=== PATIENT | female | born 1945 | race Caucasian/White ===

== ENCOUNTER 2016-05-09 09:03 | Emergency (ER) | payer MEDICARE ==
[2016-05-09 09:15] VITALS: TEMP 96.2
[2016-05-09] MEDS ORDERED: LACTATED RINGERS 1,000 ML IVS ONE (09:27)
[2016-05-09] MEDS ORDERED: IBUPROFEN 200 MG TAB PO ONE (10:45)
--- NOTE | 2016-05-09 10:47 | ED.PDOC ---
History of Present Illness - General Chief Complaint: General Stated Complaint: fever, diarrhea, weakness Time Seen by Provider: 05/09/16 09:25 Source: patient Exam Limitations: no limitations - History of Present Illness Initial Comments: The patient is a 70-year-old female presenting to the emergency room secondary to 5 days of symptoms including generalized body aches, nausea and mild diarrhea. She is started to feel weak over the last day or so. Her oral intake has not been quite normal. No shortness of breath or chest pain. No cough. No focal abdominal discomfort. She does have some abdominal cramping. No syncope or near syncope. No palpitations. Timing/Duration: 1 week Severity: moderate Improving Factors: nothing Worsening Factors: nothing Associated Symptoms: fever/chills, loss of appetite, malaise, nausea/vomiting, weakness Allergies/Adverse Reactions: Allergies NO KNOWN ALLERGY Allergy (Verified 05/09/16 09:15) Home Medications: Ambulatory Orders amLODIPine BESYLATE [Norvasc] 10 mg PO DAILY #60 tab 12/26/15 Losartan Potassium 50 mg PO BID 02/04/16 Metoprolol Tartrate 50 mg PO BID 02/04/16 Clonidine HCl 0.1 mg PO TID 02/05/16 Oseltamivir [Tamiflu] 75 mg PO BID #10 cap 05/09/16 Review of Systems - Review of Systems Constitutional: States: fever, malaise, weakness EENTM: States: no symptoms reported Respiratory: States: no symptoms reported Cardiology: States: no symptoms reported Gastrointestinal/Abdominal: States: diarrhea, nausea Genitourinary: States: no symptoms reported Musculoskeletal: States: other - generalized body aches Skin: States: no symptoms reported Neurological: States: headache - mild, weakness - mild generalized Endocrine: States: no symptoms reported All other Systems: No Change from Baseline Past Medical History (General) - Patient Medical History Hx Seizures: No Hx Stroke: No Hx Dementia: No Hx Asthma: No Hx of COPD: Yes Hx Cardiac Disorders: No Hx Congestive Heart Failure: No Hx Pacemaker: No Hx Hypertension: Yes Hx Thyroid Disease: No Hx Diabetes: No Hx Gastroesophageal Reflux: No Hx Renal Disease: No Hx Cancer: No Hx of HIV: No Hx Hepatitis C: No Hx MRSA: No Surgical History: Hysterectomy - Vaccination History Hx Tetanus, Diphtheria Vaccination: No Hx Influenza Vaccination: No - 2016 Hx Pneumococcal Vaccination: No - Social History Hx Tobacco Use: Yes Hx Chewing Tobacco Use: No Hx Alcohol Use: No Hx Substance Use: No Hx Substance Use Treatment: No Hx Depression: No Hx Physical Abuse: No Hx Emotional Abuse: No Hx Suspected Abuse: No - Female History Patient : No Family Medical History - Family History Mother Living Status: Age at (years of age): 77 Cause of : Heart complications Hx Family Asthma: No Hx Family Congestive Heart Failure: No Hx Family Hypertension: Yes Hx Family Stroke: No Hx Cardiac Disease: Yes Hx Family Diabetes: No Hx Family Cancer: No Father Living Status: Age at (years of age): 56 Cause of : [place] Hx Family Asthma: No Hx Family Congestive Heart Failure: No Hx Family Hypertension: No Hx Family Stroke: No Hx Cardiac Disease: Yes Hx Family Diabetes: No Hx Family Cancer: No Hx Family;Other: States her Parents didnt go to doctors. Physical Exam - Physical Exam General Appearance: Alert, Comfortable, No apparent distress Eye Exam: bilateral normal Ears, Nose, Throat: normal ENT inspection, normal pharynx Neck: full range of motion, supple Respiratory: chest non-tender, lungs clear, normal breath sounds, no respiratory distress, no accessory muscle use Cardiovascular/Chest: normal peripheral pulses, regular rate, rhythm, no edema Peripheral Pulses: radial,right: 2+, radial,left: 2+, dorsalis pedis,right: 2+, dorsalis pedis,left: 2+ Gastrointestinal/Abdominal: non tender, soft, other - o focal tenderness no rebound or peritoneal signs. Rectal Exam: deferred Back Exam: normal inspection Extremity: normal range of motion, non-tender, normal inspection, no pedal edema , normal capillary refill Neurologic: alert, normal mood/affect, oriented x 3 Skin Exam: normal color Comments: Vital Signs - 24 hr 05/09/16 05/09/16 09:10 10:03 Temperature 96.2 F L Pulse Rate [ 60 67 Left Radial] Respiratory 16 16 Rate Blood Pressure 146/73 144/67 [Left Arm] O2 Sat by Pulse 97 100 Oximetry Progress - Progress Progress: 05/09/16 10:49 the patient is a 70-year-old female presenting with gastrointestinal symptoms that appear to be due to influenza. She has tested positive for this. She does have mild dehydration and once was given 1 L of IV fluids. I recommend that she use Motrin 3 times daily for the next 2 days to help reduce body aches and fevers. Additionally she should take famotidine 20 mg twice daily for the next week. She needs to keep herself well-hydrated. One tablet of Imodium can be used daily as necessary to help reduce diarrhea. She certainly needs to avoid constipation. Lab work otherwise is reassuring here today. ER warnings were given for any acute worsening. Recommend follow-up with her primary care doctor next week. - Results/Orders Results/Orders: Laboratory Tests 05/09/16 05/09/16 09:44 10:02 WBC 3.5 L RBC 4.47 Hgb 13.2 Hct 39.9 MCV 89.1 MCH 29.6 MCHC 33.2 RDW 13.8 Plt Count 238 MPV 7.1 L Absolute Neuts (auto) 2.00 Absolute Lymphs (auto) 1.00 Absolute Monos (auto) 0.40 Absolute Eos (auto) 0.10 Absolute Basos (auto) 0.00 Neutrophils % 57.2 Lymphocytes % 27.2 Monocytes % 12.7 H Eosinophils % 2.0 Basophils % 0.9 Sodium 137 Potassium 3.8 Chloride 105 Carbon Dioxide 24 Anion Gap 11.8 L BUN 11 Creatinine 0.92 BUN/Creatinine Ratio 12.0 Random Glucose 123 H Serum Osmolality 274.6 L Calcium 8.6 Total Bilirubin 0.4 AST 30 ALT 23 Alkaline Phosphatase 62 Creatine Kinase 244 H* CK-MB (CK-2) 4.9 H* CK-MB (CK-2) % 2.01 Troponin I < 0.02 B-Natriuretic Peptide 62.0 Serum Total Protein 7.1 Albumin 3.7 Globulin 3.4 Albumin/Globulin Ratio 1.1 Amylase 45 Lipase 28 Urine Color Yellow Urine Appearance Clear Urine pH 5.5 Ur Specific [place] 1.020 Urine Protein 30 Urine Glucose (UA) Negative Urine Ketones Trace Urine Blood Trace-intact H Urine Nitrite Negative Urine Bilirubin Small H Urine Urobilinogen 0.2 Ur Leukocyte Esterase Negative Urine RBC 0-1 Urine WBC 0 Ur Epithelial Cells 0-1 Urine Bacteria 0 influenza PCR is positive Vital Signs - 8 hr 05/09/16 05/09/16 09:10 10:03 Temperature 96.2 F L Pulse Rate [ 60 67 Left Radial] Respiratory 16 16 Rate Blood Pressure 146/73 144/67 [Left Arm] O2 Sat by Pulse 97 100 Oximetry Departure - Departure Clinical Impression: Influenza, Dehydration, mild Disposition: Discharge to Home or Self Care Condition: Fair Departure Forms: ED Discharge - Pt. Copy, Patient Portal Self Enrollment Instructions: DI for Influenza -- Adult Diet: bland diet Activity: increase activity as tolerated Referrals: Jamie Haynes MD [Primary Care Provider] - 1-2 Weeks Prescriptions: Oseltamivir [Tamiflu] 75 mg PO BID #10 cap Home Medications: Ambulatory Orders amLODIPine BESYLATE [Norvasc] 10 mg PO DAILY #60 tab 12/26/15 Losartan Potassium 50 mg PO BID 02/04/16 Metoprolol Tartrate 50 mg PO BID 02/04/16 Clonidine HCl 0.1 mg PO TID 02/05/16 Oseltamivir [Tamiflu] 75 mg PO BID #10 cap 05/09/16 Additional Instructions: the patient is a 70-year-old female presenting with gastrointestinal symptoms that appear to be due to influenza. She has tested positive for this. She does have mild dehydration and once was given 1 L of IV fluids. I recommend that she use Motrin 3 times daily for the next 2 days to help reduce body aches and fevers. Additionally she should take famotidine 20 mg twice daily for the next week. She needs to keep herself well-hydrated. One tablet of Imodium can be used daily as necessary to help reduce diarrhea. She certainly needs to avoid constipation. Lab work otherwise is reassuring here today. ER warnings were given for any acute worsening. Recommend follow-up with her primary care doctor next week. the patient is going to be started on Tamiflu even though she has passed the 48 hour window due to a persistence of symptoms and her history of significant pulmonary disease. She is essentially a high risk patient and will thus be placed on treatment.
[2016-05-09] MEDS ORDERED: FAMOTIDINE 20 MG TAB PO SCH (11:00)
[2016-05-09 11:32] VITALS: BP 167/69; O2SAT 98
== END 2016-05-09 11:25 | disposition home or self-care (01) ==
LOC: ER 09:03
DX: J11.2 Influenza due to unidentified influenza virus with gastrointestinal manifestations (principal); E86.0 Dehydration; J44.9 Chronic obstructive pulmonary disease, unspecified; I10 Essential (primary) hypertension; Z79.899 Other long term (current) drug therapy
CPT/HCPCS: 36415; 80053; 81001; 82150; 82550; 82553; 83690; 83880; 84484; 85025; 87502; J7120

== ENCOUNTER → 2017-07-21 | Outpatient (CLI) | payer MEDICARE ==
--- NOTE | 2017-07-21 14:38 | US ---
EXAM DESCRIPTION: Extremity,Lower [place] Arteries: Ultrasound. CLINICAL HISTORY: ATHEROSCLEROTIC HEART DISEASE OF [place] CORONARY ARTERY COMPARISON: Duplex ultrasound evaluation of the bilateral carotid vertebral systems on this visit. TECHNIQUE: Doppler evaluation of the bilateral lower extremity arterial flow waveforms and velocities. FINDINGS: Arterial waveforms in the right lower extremity are triphasic in the right common femoral artery. Biphasic in the proximal right femoral artery. Monophasic from the right mid femoral artery to the right dorsalis pedis artery. Blunted monophasic and more severe from the popliteal artery to the dorsalis pedis artery. Arterial waveforms in the left lower extremity are triphasic in the left common femoral artery. Monophasic from the left femoral artery to the left. Peroneal artery. No flow in the left posterior tibial and dorsalis pedis arteries.. Comments: Bilateral significant peripheral vascular disease distal lower extremities. IMPRESSION: The findings indicate significant bilateral atherosclerotic occlusive disease of the lower extremities more distal than proximal, and more left leg and right leg. Electronically signed by: Frandy Stephenson MD 07/21/2017 2:37 PM CDT
--- NOTE | 2017-07-21 14:58 | US ---
EXAM DESCRIPTION: Carotid Duplex: ULTRASOUND. CLINICAL HISTORY: ATHEROSCLEROSIS OF [place] ARTERIES OF EXTREMITIES COMPARISON: Bilateral lower extremity Doppler arterial evaluation. TECHNIQUE: Transcutaneous scanning utilizing 2-dimensional and Doppler modes to evaluate the bilateral carotid systems and vertebral arteries. Percentage of diameter of stenosis or no stenosis recorded will be based upon NASCET criteria. FINDINGS: Peak systolic/end diastolic (CM-Sec) CCA Right 79/11 Left 98/18. ICA Right proximal 382/77, mid 88/19. Left proximal 70/16, Distal 91/19. Vertebral Right 58/10 Left 53/8. ECA (PS Only) Right 70/3 left 167/0.. ICA/CCA peak systolic ratio: Right 4.8 Left 0.9 ICA/CCA end diastolic ratio: Right 1.1 Left 1.0 Vertebral arteries: antegrade flow. Comments: Significant atherosclerotic disease bilateral common carotid bifurcations. Color turbulent flow and spectral broadening in the bilateral proximal ICAs. Area stenosis in the proximal right bulb is 74%; diameter stenosis is 64%. Area stenosis of the proximal right ICA is 77%; diameter stenosis is 73%. Area stenosis in the left CCA bulb is 31%; diameter stenosis is 44%. Area stenosis in the left proximal ICA 37%; diameter stenosis is 35%. IMPRESSION: 1. Doppler evaluation of the bilateral carotid systems and vertebral arteries shows hemodynamically significant stenoses of greater than 70% in the right common carotid bulb and the proximal right ICA. 2-D measurements of the stenoses are in agreement with Doppler parameters. Consider correlation with CTA for carotid vertebral vessels and bilateral lower extremities, if clinically indicated. 2. Significant amount of plaque seen in the carotid arteries bilaterally. Bilateral vertebral arteries showed antegrade-cephalad flow. CRITICAL COMMUNICATION: The critical values were discussed directly by phone with Dr. Vince Haynes at approximately 1450 hours, on July 21, 2017. Electronically signed by: Frandy Stephenson MD 07/21/2017 2:56 PM CDT
== END ==
LOC: US 12:19
PROVIDERS: ATTEND Family Medicine
DX: I25.10 Atherosclerotic heart disease of native coronary artery without angina pectoris (principal); I70.209 Unspecified atherosclerosis of native arteries of extremities, unspecified extremity

== ENCOUNTER → 2020-03-07 | Outpatient (CLI) | payer MEDICARE | LOC: YCFC.O 08:55 | PROVIDERS: ATTEND Family Medicine | DX: I10 Essential (primary) hypertension (principal); E78.5 Hyperlipidemia, unspecified; L65.9 Nonscarring hair loss, unspecified; R53.83 Other fatigue ==